=== PATIENT | female | born 1980 | race Caucasian/White ===

== ENCOUNTER 2017-12-29 22:00 | Inpatient (IN) | payer BC ==
[~2017-12-29 22:00] MED LIST: Bupivacaine 0.25% 10 ML VIAL ONE; Lidocaine 2% MPF 10 ML AMP (For Epidural Use) ONE
[2017-12-29] MEDS ORDERED: Diphenoxylate HCl/Atropine Tablet PO PRN ×2 (22:54)
[2017-12-29] MEDS ORDERED: Ibuprofen 800 MG TAB PO PRN (22:54)
[2017-12-29] MEDS ORDERED: Zolpidem Tartrate 5 MG TAB PO PRN (22:54)
[2017-12-29] MEDS ORDERED: Carboprost 250 MCG/ML AMP IM PRN (22:54)
[2017-12-29] MEDS ORDERED: Lidocaine 1% (PF) 30 ML VIAL SC PRN (22:54)
[2017-12-29] MEDS ORDERED: NS w/ Oxytocin 10 units 500 ML IV SCH (22:54)
[2017-12-29] MEDS ORDERED: Promethazine HCl 25 MG/ML VIAL IM PRN (22:54)
[2017-12-29] MEDS ORDERED: HYDROcodone/Acetaminophen 5/325 mg Tablet PO PRN ×2 (22:54)
[2017-12-29] MEDS ORDERED: Ondansetron HCl/PF 4 MG/2 ML Vial IVP PRN (22:54)
[2017-12-29] MEDS ORDERED: Misoprostol 200 MCG TAB PR PRN (22:54)
[2017-12-29] MEDS ORDERED: NS / Oxytocin 40 units/1000ml 1,000 ML IV PRN (22:54)
[2017-12-29 23:01] VITALS: BMI 32.1
[2017-12-29] MEDS ORDERED: Dinoprostone 10 MG Suppository VAG SCH (23:15)
[2017-12-29] MEDS: NS w/ Oxytocin 10 units 500 ML IV SCH (23:38)
[2017-12-29 23:46] LABS: Hemoglobin 11.4 g/dL (12.0-16.0); Mean Corpuscular HGB CONC 33.5 g/dL (32.0-36.0); Mean Corpuscular Hemoglobin 30.8 pg (27.0-31.0); Mean Corpuscular Volume 92.2 fL (78.0-98.0); Platelet Count 274 thou/uL (130-400); RBC Distribution Width 12.5 % (11.5-14.5); Red Blood Cell (RBC) Count 3.71 mill/uL (4.20-5.40); White Blood Cell (WBC) Count 11.2 thou/uL (4.8-10.8)
[2017-12-30 00:19] LABS: HBSAg Index 0.22 S/CO (0-0.99); Hep B Surf Ag Non-Reactive S/CO (NonReactive)
[2017-12-30 01:03] LABS: Syphilis Antibody Nonreactive (Nonreactive); Syphilis Antibody Index 0.05 S/CO (<1.00 Non-Reactive)
[2017-12-30] MEDS: NS w/ Oxytocin 10 units 500 ML IV SCH (11:54)
[2017-12-30] MEDS ORDERED: Fentanyl 4 mcg/Bup 0.1% Cadd 100 ML ONE (14:47)
[2017-12-30] MEDS ORDERED: Fentanyl 100 MCG/2 ML VIAL ONE (15:35)
--- NOTE | 2017-12-30 20:17 | PDOC.LDHP ---
Labor and Delivery H&P Chief complaint: scheduled induction HPI: CHRONIC HYPERTENSION AT 39 AND 0/7 WEEKS MEDICAL INDUCTION Current gestational age (weeks): 39 Due date: 01/05/18 Grav: 3 Para: 2 Current complications: hypertension Abnormal US findings: No Current medications: pre-nirmala vitamins Previous surgical history: other ( LEEP) Allergies/Adverse Reactions: Allergies Allergy/AdvReac Type Severity Reaction Status Date / Time No Allergy Information Allergy Verified 12/29/17 22:56 Available - Physical Exam Vital signs reviewed and normal: yes General: NAD Heart: RRR Lungs: CTAB Abdomen: NTTP Extremeties: no edema FHT: category 1 - Assessment L&D Assessment: medically indicated induction - Plan Plan: admit to L&D, cervical ripening
[2017-12-30] MEDS ORDERED: Bisacodyl 10 MG SUPP PR PRN (22:26)
[2017-12-30] MEDS ORDERED: NS / Oxytocin 40 units/1000ml 1,000 ML IV SCH (22:26)
[2017-12-30] MEDS ORDERED: Lanolin Ointment 7 GM TUBE TOP PRN (22:26)
[2017-12-30] MEDS ORDERED: diphenhydrAMINE 25 MG CAP PO PRN (22:26)
[2017-12-30] MEDS ORDERED: Ondansetron HCl/PF 4 MG/2 ML Vial IVP PRN (22:26)
[2017-12-30] MEDS ORDERED: Milk Of Magnesia 30 ML UDCUP PO PRN (22:26)
[2017-12-30] MEDS ORDERED: Promethazine HCl 25 MG/ML VIAL IM PRN (22:26)
[2017-12-30] MEDS ORDERED: Preparation H Ointment 28 GM TUBE PR PRN (22:26)
[2017-12-30] MEDS ORDERED: HYDROcodone/Acetaminophen 5/325 mg Tablet PO PRN (22:26)
[2017-12-30] MEDS ORDERED: Zolpidem Tartrate 5 MG TAB PO PRN (22:26)
[2017-12-30] MEDS ORDERED: Ibuprofen 800 MG TAB PO SCH (22:45)
[2017-12-30] MEDS ORDERED: Docusate Calcium (SURFAK) 240 MG CAP PO SCH (22:45)
[2017-12-31] MEDS ORDERED: Ibuprofen 800 MG TAB PO SCH ×2 (06:00→19:00)
[2017-12-31] MEDS ORDERED: Measles/Mumps/Rubella 10 MCG/0.5 ML VIAL SC ONE (09:00)
[2017-12-31] MEDS ORDERED: Adacel (T-DAP) 0.5 ML VIAL IM ONE (09:00)
[2017-12-31] MEDS ORDERED: Varicella virus, LIVE 0.5 ML VIAL SC ONE (09:00)
[2017-12-31] MEDS: Docusate Calcium (SURFAK) 240 MG CAP PO SCH ×2 (10:39→20:44)
[2017-12-31] MEDS: Ferrous Sulfate 325 MG TAB PO SCH ×2 (10:39→14:56)
[2017-12-31] MEDS: HYDROcodone/Acetaminophen 5/325 mg Tablet PO PRN ×2 (14:26→20:49)
--- NOTE | 2017-12-31 19:01 | PDOC.PP ---
Post Progress Note Post Day #: 1 PO intake tolerated: yes Flatus: yes Ambulation: yes Vital Signs (12 hours) Temp Pulse Resp BP Pulse Ox 12/31/17 16:47 97.8 F 86 20 134/82 12/31/17 09:40 98.4 F 104 H 20 133/63 97 Weight Weight 230 lb - Physical Examination General: NAD Cardiovascular: no m/r/g, RRR Respiratory: clear to auscultation bilaterally, non-labored breathing Abdominal: + bowel sounds, no distention Extremities: negative homans (B) Neurological: no gross focal deficits Psychiatric: A&Ox3, normal affect Result Diagrams: 12/29/17 23:32 Additional Labs: Post Labs Blood Type B POSITIVE 12/29/17 23:32 Hep Bs Antigen Non-Reactive S/CO (NonReactive) 12/29/17 23:32 - Assessment/Plan Patient is doing very well, ready for DC to home. F/U in clinic in 2 weeks.
--- NOTE | 2017-12-31 20:40 | OP ---
DATE OF PROCEDURE: 12/30/2017 PREOPERATIVE DIAGNOSES: Intrauterine at 39 weeks and 1 day with a term induction of labor for chronic hypertension as well as gestational diabetes controlled with metformin. PROCEDURE: Spontaneous vaginal delivery over a small second-degree midline laceration. FINDINGS: Viable male weighing 3809 grams or 8 pounds 6 ounces, Apgars 9 and 9. QUANTITATIVE BLOOD LOSS: 66. COMPLICATIONS: None. DETAILS OF THE PROCEDURE: The patient presented to [facility] where she was a dmitted to the Labor and Delivery service. The patient underwent a normal and uneventful labor with normal cervical dilatation until she was found to be completely dilated. She was then allowed to pus h and was able to bring the baby down and delivered the baby in a vertex presentation without difficu lties. Once the head delivered in occiput anterior position, the shoulders followed spontaneously al abelardo with the rest of the baby's body. Once out the baby's mouth and nose were bulb suctioned. The c ord was clamped and cut and baby was handed to waiting attendants. Cord blood was collected. Gentle Fundal massage was performed and the placenta delivered intact without problems. Hemostasis was ass ured. Quantitative blood loss was calculated. Inspection of the cervix, vaginal vault, and perineum did not reveal any lacerations needing suturing. Once again, hemostasis was within normal limits an d the patient was allowed to recover in the labor and delivery room. Baby went to nursery.
[2017-12-31 21:01] VITALS: BP 137/74; TEMP 98.1
== END 2018-01-01 11:48 | disposition home or self-care (01) | DRG 806 ==
LOC: L&D 22:16 → 3SE 12-31 09:27
PROVIDERS: ADMIT Obstetrics & Gynecology; ATTEND Obstetrics & Gynecology
PROC: 10E0XZZ Delivery of Products of Conception, External Approach (ICD-10-PCS; principal; 2017-12-29)
PROC: 3E033VJ Introduction of Other Hormone into Peripheral Vein, Percutaneous Approach (ICD-10-PCS; 2017-12-29)
PROC: 10907ZC Drainage of Amniotic Fluid, Therapeutic from Products of Conception, Via Natural or Artificial Opening (ICD-10-PCS; 2017-12-29)
DX: O24.425 Gestational diabetes mellitus in childbirth, controlled by oral hypoglycemic drugs (principal); O10.92 Unspecified pre-existing hypertension complicating childbirth; Z37.0 Single live birth; Z3A.39 39 weeks gestation of pregnancy; O70.1 Second degree perineal laceration during delivery
CPT/HCPCS: 36415; 51702; 76815; 85027; 86780; 86850; 86900; 86901; 87340; J2001; J3010; S0020

== ENCOUNTER 2018-12-03 07:37 | Outpatient (CLI) | payer BC ==
--- NOTE | 2018-12-03 08:35 | ULT ---
RIGHT UPPER QUADRANT ULTRASOUND: CLINICAL HISTORY: Right upper abdominal pain. FINDINGS: There is no focal hepatic lesion. Gallbladder is unremarkable. The common duct is normal at 3 mm in diameter. There is no ascites. IMPRESSION: No acute abnormality of the right upper quadrant demonstrated by ultrasound imaging. POS: C
== END 2018-12-03 07:38 | disposition home or self-care (01) ==
LOC: SCSULT 07:37
PROVIDERS: ATTEND Physician Assistant Medical
DX: R10.11 Right upper quadrant pain (principal); Z87.19 Personal history of other diseases of the digestive system
CPT/HCPCS: 76705

== ENCOUNTER 2018-12-24 12:36 | Outpatient (CLI) | payer BC ==
--- NOTE | 2018-12-24 15:53 | NM ---
Radionucleotide hepatobiliary scan and gallbladder ejection fraction HISTORY: Right upper quadrant pain. FINDINGS: Early images show physiologic uptake of radiotracer throughout the hepatic parenchyma. Gall bladder is imaged immediately. Uptake within the small bowel at 56 minutes. After administration of fatty meal, there is progressive excretion of radiotracer from the gallbladde r to the small bowel. Ejection fraction calculated at 76%. IMPRESSION: Normal hepatobiliary scan. Normal gallbladder ejection fraction.
== END 2018-12-24 12:37 | disposition home or self-care (01) ==
LOC: NM 12:36
PROVIDERS: ATTEND Family Medicine
DX: R10.84 Generalized abdominal pain (principal)
CPT/HCPCS: 78227; A9537

== ENCOUNTER 2020-12-25 06:51 | Outpatient (CLI) | payer BC | END 2020-12-25 06:52 | disposition home or self-care (01) | LOC: BICMRI 06:51 | PROVIDERS: ATTEND Family Medicine | DX: M54.9 Dorsalgia, unspecified (principal); M51.26 Other intervertebral disc displacement, lumbar region; M51.27 Other intervertebral disc displacement, lumbosacral region; M51.36 Other intervertebral disc degeneration, lumbar region; M51.37 Other intervertebral disc degeneration, lumbosacral region | CPT/HCPCS: 72148 ==